=== PATIENT | male | born 1990 | race Caucasian/White ===

== ENCOUNTER 2021-08-19 03:51 | Emergency (ER) | payer SELFPAY ==
[~2021-08-19] VITALS: Ht 177.8 cm; Wt 104.0 kg
[~2021-08-19 03:51] MED LIST: CEPHALEXIN500 MG OR; CIPRO500 MG OR; CIPROFLOXACN500 MG PO; NO CURRENT MEDS; NO HOME MEDS; PROMETHAZINE25 MG OR; TORADOL OR
[2021-08-19 03:58] VITALS: BP 130/87
[2021-08-19 04:00] VITALS: BP 151/82
[2021-08-19 04:07] LABS: URINE BILIRUBIN - DIPSTICK NEGATIVE (NEGATIVE); URINE BLOOD DIPSTICK SMALL (NEGATIVE); URINE COLOR YELLOW; URINE GLUCOSE - DIPSTICK NEGATIVE (NEGATIVE); URINE KETONE NEGATIVE (NEGATIVE); URINE LEUK ESTERASE TRACE (NEGATIVE); URINE NITRITE - DIPSTICK NEGATIVE (Negative); URINE PROTEIN - DIPSTICK NEGATIVE (NEG-TRACE); URINE UROBILINOGEN - DIPSTICK 0.2 E.U./dL (0.2)
[2021-08-19 04:28] LABS: URINE BACTERIA FEW hpf; URINE SQUAMOUS EPITHELIAL CELL FEW EPI/hpf (0-FEW)
[2021-08-19 04:30] VITALS: BP 125/83
[2021-08-19] MEDS ORDERED: CIPROFLOXACN500 MG PO (04:34)
[2021-08-19] MEDS ORDERED: PYRIDIUM200 MG PO (04:34)
[2021-08-19] MEDS ORDERED: AZITHROMYCIN500 MG PO (04:34)
[2021-08-19 04:43] VITALS: BP 125/83
== END 2021-08-19 04:48 | disposition home or self-care (01) | DRG 690 ==
LOC: ED 03:51
DX: N34.2 Other urethritis (principal); F17.290 Nicotine dependence, other tobacco product, uncomplicated

== ENCOUNTER 2022-10-16 00:43 | Emergency (ER) | payer BC ==
[~2022-10-16] VITALS: Ht 177.8 cm; Wt 97.0 kg
[~2022-10-16 00:43] MED LIST changes: +AZITHROMYCIN500 MG PO; +PYRIDIUM200 MG PO
[2022-10-16] MEDS ORDERED: FIORICET PO (03:28)
[2022-10-16] MEDS ORDERED: FLUOXETINE HYDR20 MG (03:42)
[2022-10-16 03:43] LABS: URINE BILIRUBIN - DIPSTICK Negative (NEGATIVE); URINE BLOOD DIPSTICK Negative (NEGATIVE); URINE GLUCOSE - DIPSTICK Negative (NEGATIVE); URINE KETONE Negative (NEGATIVE); URINE LEUK ESTERASE Negative (NEGATIVE); URINE NITRITE - DIPSTICK Negative (Negative); URINE PROTEIN - DIPSTICK Negative (NEG-TRACE); URINE UROBILINOGEN - DIPSTICK 0.2 E.U./dL (0.2)
[2022-10-16] MEDS ORDERED: HYDROXYZ HCL25 MG PO (03:43)
[2022-10-16 03:45] LABS: URINE COLOR Yellow
[2022-10-16 04:01] VITALS: BP 155/91
== END 2022-10-16 04:08 | disposition home or self-care (01) | DRG 103 ==
LOC: ED 00:43
PROVIDERS: Emergency Medicine
DX: R51.9 Headache, unspecified (principal); Z20.822 Contact with and (suspected) exposure to COVID-19